=== PATIENT | male | born 1990 ===

== ENCOUNTER 2019-06-24 19:19 | Emergency (ER) | payer SELFPAY ==
[2019-06-24] MEDS ORDERED: ACETAMINOPHEN 325 MG TABLET ONE (20:18)
[2019-06-24] MEDS ORDERED: IBUPROFEN 400 MG TAB ONE (21:00)
[2019-06-24] MEDS ORDERED: IBUPROFEN 200 MG TAB PO ONE (21:00)
--- NOTE | 2019-06-24 21:06 | EDPHYS ---
Physician Documentation [facility] Name: Aki Larsen Age: 29 yrs Sex: Male : 1990 Arrival Date: 06/24/2019 Time: 19:23 Bed 12 Private MD: ED Physician Terry Angel HPI: 06/24 21:04 This 29 yrs old Male presents to ER via Ambulatory with complaints of Flu Symptoms. pm1 21:04 The patient or guardian reports cough, flu symptoms, myalgias. Onset: The pm1 symptoms/episode began/occurred 2 day(s) ago. Severity of symptoms: in the emergency department the symptoms are actually worse. Modifying factors: The symptoms are alleviated by OTC cold preparation, Tylenol, the symptoms are aggravated by nothing. Associated signs and symptoms: Pertinent positives: fever, rhinorrhea, Pertinent negatives: chest pain, diarrhea, nausea, vomiting, shortness of breath. It is unknown whether or not the patient has recently seen a physician. Historical: - Allergies: 20:12 No Known Allergies; ca1 - Home Meds: 20:12 None [Active]; ca1 - PMHx: 20:12 None; ca1 - PSHx: 20:12 None; ca1 - Immunization history:: Adult Immunizations up to date, Flu vaccine is not up to date. - Social history:: Smoking status: Patient/guardian denies using tobacco. - Ebola Screening: : Patient negative for fever greater than or equal to 101.5 degrees Fahrenheit, and additional compatible Ebola Virus Disease symptoms Patient denies exposure to infectious person Patient denies travel to an Ebola-affected area in the 21 days before illness onset No symptoms or risks identified at this time. ROS: 21:04 Eyes: Negative for injury, pain, redness, and discharge. pm1 21:04 Neck: Negative for injury, pain, and swelling, Cardiovascular: Negative for chest pain, palpitations, and edema. 21:04 Abdomen/GI: Negative for abdominal pain, nausea, vomiting, diarrhea, and constipation, Back: Negative for injury and pain, MS/Extremity: Negative for injury and deformity, Skin: Negative for injury, rash, and discoloration, Neuro: Negative for headache, weakness, numbness, tingling, and seizure. 21:04 Constitutional: Positive for body aches, fever, Negative for poor PO intake. 21:04 ENT: Positive for rhinorrhea, Negative for ear pain. 21:04 Respiratory: Positive for cough, Negative for shortness of breath, sputum production, wheezing. Exam: 21:04 Constitutional: This is a well developed, well nourished patient who is awake, alert, pm1 and in no acute distress. Head/Face: Normocephalic, atraumatic. Eyes: Pupils equal round and reactive to light, extra-ocular motions intact. Lids and lashes normal. Conjunctiva and sclera are non-icteric and not injected. Cornea within normal limits. Periorbital areas with no swelling, redness, or edema. ENT: Nares patent. No nasal discharge, no septal abnormalities noted. Tympanic membranes are normal and external auditory canals are clear. Oropharynx with no redness, swelling, or masses, exudates, or evidence of obstruction, uvula midline. Mucous membranes moist. Neck: Trachea midline, no thyromegaly or masses palpated, and no cervical lymphadenopathy. Supple, full range of motion without nuchal rigidity, or vertebral point tenderness. No Meningismus. Chest/axilla: Normal chest wall appearance and motion. Nontender with no deformity. No lesions are appreciated. Cardiovascular: Regular rate and rhythm with a normal S1 and S2. No gallops, murmurs, or rubs. Normal PMI, no JVD. No pulse deficits. Respiratory: Lungs have equal breath sounds bilaterally, clear to auscultation and percussion. No rales, rhonchi or wheezes noted. No increased work of breathing, no retractions or nasal flaring. Abdomen/GI: Soft, non-tender, with normal bowel sounds. No distension or tympany. No guarding or rebound. No evidence of tenderness throughout. Back: No spinal tenderness. No costovertebral tenderness. Full range of motion. Skin: Warm, dry with normal turgor. Normal color with no rashes, no lesions, and no evidence of cellulitis. MS/ Extremity: Pulses equal, no cyanosis. Neurovascular intact. Full, normal range of motion. 21:04 Neuro: Orientation: is normal, Motor: is normal, moves all fours, Sensation: is normal, no obvious gross deficits. Vital Signs: 20:12 BP 129 / 91; Pulse 93; Resp 18 S; Temp 100(O); Pulse Ox 100% on R/A; Weight 63.5 kg ca1 (R); Height 5 ft. 9 in. (175.26 cm) (R); Pain 5/10; 20:56 Temp 102.8(O); ca1 21:14 BP 131 / 84; Pulse 85; Resp 17 S; Temp 100.9(O); Pulse Ox 100% on R/A; ca1 21:14 Temp 100.9(O); ca1 20:12 Body Mass Index 20.67 (63.50 kg, 175.26 cm) ca1 MDM: 21:04 Patient medically screened. pm1 21:04 Data reviewed: vital signs. Data interpreted: Pulse oximetry: on room air is 100 %. pm1 Interpretation: normal. Counseling: I had a detailed discussion with the patient and/or guardian regarding: the historical points, exam findings, and any diagnostic results supporting the discharge/admit diagnosis, lab results, the need for outpatient follow up, to return to the emergency department if symptoms worsen or persist or if there are any questions or concerns that arise at home. 06/24 20:13 Order name: Flu; Complete Time: 21:04 ca1 06/24 20:13 Order name: Strep; Complete Time: 21:04 ca1 06/24 20:42 Order name: Throat Culture EDMS Administered Medications: 20:16 Drug: Tylenol 650 mg Route: PO; ca1 20:56 Follow up: Response: No adverse reaction; Temperature is increased ca1 20:59 Drug: Motrin 600 mg Route: PO; ca1 21:14 Follow up: Temp 100.9 Oral; Response: No adverse reaction; Temperature is decreased ca1 21:13 Drug: Tamiflu 75 mg Route: PO; ca1 21:13 Follow up: Response: Medication administered at discharge. ca1 Disposition: 06/25 00:06 Co-signature as Attending Physician, Terry Angel MD I agree with the assessment and kdr plan of care. Disposition: 06/24/19 21:05 Discharged to Home. Impression: Influenza due to certain identified influenza viruses - Influenza B. - Condition is Stable. - Discharge Instructions: Influenza, Adult. - Prescriptions for Tamiflu 75 mg Oral Capsule - take 1 tablet by ORAL route every 12 hours for 5 days; 10 tablet. - Medication Reconciliation Form, Thank You Letter, Antibiotic Education, Prescription Opioid Use form. - Follow up: Emergency Department; When: As needed; Reason: Worsening of condition. Follow up: Private Physician; When: 2 - 3 days; Reason: Recheck today's complaints, Continuance of care, Re-evaluation by your physician. - Problem is new. - Symptoms have improved. Signatures: Dispatcher [employer] EDMS Terry Angel MD MD kdr Marinas, Patrick, MULTIMEDIA MANAGER MULTIMEDIA MANAGER pm1 Chris, Lillian RN RN ca1 Corrections: (The following items were deleted from the chart) 06/24 21:15 21:05 06/24/2019 21:05 Discharged to Home. Impression: Influenza due to certain ca1 identified influenza viruses - Influenza B. Condition is Stable. Forms are Medication Reconciliation Form, Thank You Letter, Antibiotic Education, Prescription Opioid Use. Follow up: Emergency Department; When: As needed; Reason: Worsening of condition. Follow up: Private Physician; When: 2 - 3 days; Reason: Recheck today's complaints, Continuance of care, Re-evaluation by your physician. Problem is new. Symptoms have improved. pm1
--- NOTE | 2019-06-24 21:06 | ER ---
Nurse's Notes [facility] Name: Aki Larsen Age: 29 yrs Sex: Male : 1990 Arrival Date: 06/24/2019 Time: 19:23 Bed 12 Private MD: Diagnosis: Influenza due to certain identified influenza viruses-Influenza B Presentation: 06/24 20:09 Presenting complaint: Patient states: fever x 2 days. Cough and congestion x 2 days. ca1 Reports nausea and pain all over, decreased appetite. Tylenol taken at 2pm. Transition of care: patient was not received from another setting of care. Onset of symptoms was June 23, 2019. Risk Assessment: Do you want to hurt yourself or someone else? Patient reports no desire to harm self or others. Initial Sepsis Screen: Does the patient meet any 2 criteria? No. Patient's initial sepsis screen is negative. Does the patient have a suspected source of infection? No. Patient's initial sepsis screen is negative. Care prior to arrival: None. 20:09 Method Of Arrival: Ambulatory ca1 20:09 Acuity: CHERELLE 4 ca1 Historical: - Allergies: 20:12 No Known Allergies; ca1 - Home Meds: 20:12 None [Active]; ca1 - PMHx: 20:12 None; ca1 - PSHx: 20:12 None; ca1 - Immunization history:: Adult Immunizations up to date, Flu vaccine is not up to date. - Social history:: Smoking status: Patient/guardian denies using tobacco. - Ebola Screening: : Patient negative for fever greater than or equal to 101.5 degrees Fahrenheit, and additional compatible Ebola Virus Disease symptoms Patient denies exposure to infectious person Patient denies travel to an Ebola-affected area in the 21 days before illness onset No symptoms or risks identified at this time. Screenin:48 Abuse screen: Denies threats or abuse. Denies injuries from another. Nutritional ca1 screening: No deficits noted. Tuberculosis screening: No symptoms or risk factors identified. Fall Risk None identified. Assessment: 20:48 General: Appears in no apparent distress. comfortable, Behavior is calm, cooperative, ca1 appropriate for age. General: Reports chills for 1-2 days, fever for 1-2 days. Pain: Complains of pain in all over Pain currently is 5 out of 10 on a pain scale. Pain began 2-3 days ago. Neuro: Level of Consciousness is awake, alert, obeys commands. Cardiovascular: Heart tones S1 S2 present Capillary refill < 3 seconds Patient's skin is warm and dry. Respiratory: Reports cough that is non-productive, Airway is patent Respiratory effort is even, unlabored, Respiratory pattern is regular, symmetrical, Breath sounds are clear bilaterally. GI: Abdomen is flat, non-distended, Bowel sounds present X 4 quads. Abd is soft and non tender X 4 quads. Reports nausea. : No signs and/or symptoms were reported regarding the genitourinary system. EENT: Reports nasal congestion since 2 days ago. Derm: Skin is intact, is healthy with good turgor, Skin is pink, warm \T\ dry. Musculoskeletal: Circulation, motion, and sensation intact. Capillary refill < 3 seconds, Range of motion: intact in all extremities. 21:14 Reassessment: Patient appears in no apparent distress at this time. Patient is alert, ca1 oriented x 3, equal unlabored respirations, skin warm/dry/pink. Vital Signs: 20:12 BP 129 / 91; Pulse 93; Resp 18 S; Temp 100(O); Pulse Ox 100% on R/A; Weight 63.5 kg ca1 (R); Height 5 ft. 9 in. (175.26 cm) (R); Pain 5/10; 20:56 Temp 102.8(O); ca1 21:14 BP 131 / 84; Pulse 85; Resp 17 S; Temp 100.9(O); Pulse Ox 100% on R/A; ca1 21:14 Temp 100.9(O); ca1 20:12 Body Mass Index 20.67 (63.50 kg, 175.26 cm) ca1 ED Course: 19:23 Patient arrived in ED. [id number] 20:11 Triage completed. ca1 20:12 Arm band placed on right wrist. ca1 20:48 Patient has correct armband on for positive identification. Bed in low position. Call ca1 light in reach. Side rails up X 1. 20:48 No provider procedures requiring assistance completed. Patient did not have IV access ca1 during this emergency room visit. 20:52 Lillian Perez RN is Primary Nurse. ca1 20:55 Corwin Landis NP is PHCP. pm1 20:55 Terry Angel MD is Attending Physician. pm1 Administered Medications: 20:16 Drug: Tylenol 650 mg Route: PO; ca1 20:56 Follow up: Response: No adverse reaction; Temperature is increased ca1 20:59 Drug: Motrin 600 mg Route: PO; ca1 21:14 Follow up: Temp 100.9 Oral; Response: No adverse reaction; Temperature is decreased ca1 21:13 Drug: Tamiflu 75 mg Route: PO; ca1 21:13 Follow up: Response: Medication administered at discharge. ca1 Outcome: 21:05 Discharge ordered by . pm1 21:14 Discharged to home ambulatory. ca1 21:14 Condition: stable 21:14 Discharge instructions given to patient, Instructed on discharge instructions, follow up and referral plans. medication usage, Demonstrated understanding of instructions, follow-up care, medications, Prescriptions given X 1. 21:15 Patient left the ED. ca1 Signatures: Corwin Landis NP MACHINE ERECTOR pm1 Lillian Perez RN RN ca1 Leyla Caba [id number]
[2019-06-24] MEDS ORDERED: OSELTAMIVIR 75 MG CAP ONE (21:13)
[2019-06-24 21:23] VITALS: O2SAT 100
[2019-06-24 21:26] VITALS: BP 131/84; TEMP 100.9
== END 2019-06-24 21:15 | disposition home or self-care (01) ==
LOC: ER 19:19
DX: J10.89 Influenza due to other identified influenza virus with other manifestations (principal)
CPT/HCPCS: 87070; 87081; 87804; 99283